=== PATIENT | female | born 1930 | race Caucasian/White ===

== ENCOUNTER 2017-08-11 20:04 | Emergency (ER) | payer MEDICARE ==
[2017-08-11 20:21] VITALS: RESP 18; TEMP 98.6
--- NOTE | 2017-08-11 20:37 | ED ---
Lower Extremity Injury HPI - General Chief Complaint: Extremity Injury, Lower Stated Complaint: FALL,KNEE PAIN Time Seen by Provider: 08/11/17 20:14 Source: EMS, RN notes reviewed Mode of arrival: EMS Limitations: physical limitation - History of Present Illness Initial Comments: This is an 87-year-old female who presents to the emergency department with chief complaint of left knee injury. Patient states that on Saturday evening she was walking in her bedroom when she fell and landed on her left knee. Patient states she cannot remember what caused her to fall and states that she landed directly onto the left knee, falling on a platform that she uses to get in and out of bed. Patient states that she has had frequent falls in the past, stating her last fall was about 1 year ago. Patient denies any head injury, loss of consciousness or dizziness. Son is at bedside and states that she was able to ambulate Saturday evening after the fall and got up without difficulty on Saturday morning when her home health nurse visited. He states after the nurse left, patient was having difficulty walking due to pain in the left knee. Patient states that her pain is localized to the anterior aspect of her left knee. Denies any other injury. Denies fever, chills, chest pain, shortness of breath, abdominal pain, nausea or vomiting, constipation or diarrhea, dysuria or hematuria, numbness or tingling, headache or vision changes. - Related Data Home Medications Medication Instructions Recorded Confirmed Ketotifen Fumarate [Zaditor] 1 drops BOTH EYES TID 10/24/14 08/11/17 Levothyroxine Sodium [Synthroid] 88 mcg PO DAILY 10/24/14 08/11/17 Potassium Chloride [K-Tab ER] 20 meq PO DIRECTED 10/24/14 08/11/17 Timolol 0.5% Ophth Soln [Timoptic 1 drop BOTH EYES TID 10/24/14 08/11/17 0.5% Ophth Soln] Torsemide [Demadex] 20 mg PO Q48H 10/24/14 08/11/17 Atenolol [Tenormin] 50 mg PO DAILY 08/05/17 08/11/17 Aureliano/D3/Mag11/Zinc/Healthcare Analyst/[place]/Bor 2 tab PO DAILY 08/05/17 08/11/17 [Caltrate 600+D Plus Tablet] Fluticasone Nasal [place] [Flonase 1 spr EA NOSTRIL DAILY PRN 08/05/17 08/11/17 Nasal [place]] Multivitamin/Iron/Folic Acid 1 tab PO DAILY 08/05/17 08/11/17 [Centrum Complete Multivit Tab] Aspirin 325 mg PO DAILY 08/11/17 08/11/17 Previous Rx's Medication Instructions Recorded Amoxicillin/Potassium Clav 1 tab PO Q12HR #20 tab 08/08/17 [Augmentin 500-125 Tablet] Allergies Allergy/AdvReac Type Severity Reaction Status Date / Time No Known Allergies Allergy Verified 08/11/17 20:23 Review of Systems ROS Statement: Those systems with pertinent positive or pertinent negative responses have been documented in the HPI. ROS Other: All systems not noted in ROS Statement are negative. 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, cataract surgery, blepharoplasty, appendectomy, hernia repair, hysterectomy, sinus surgery Past Anesthesia/Blood Transfusion Reactions: No Reported Reaction Past Psychological History: No Psychological Hx Reported Smoking Status: Never smoker Past Alcohol Use History: None Reported Past Drug Use History: None Reported - Past Family History Father Family Medical History: Myocardial Infarction ([place]) Mother Family Medical History: Pneumonia Additional Family Medical History / Comment(s): tb General Exam - General Exam Comments Initial Comments: General: Awake and alert, well-developed; in no apparent distress. Pleasant and cooperative. Son is at bedside. HEENT: Head atraumatic, normocephalic. Gauze dressing placed under nares with tape extending to both sides of the face. Pupils are equal, round and reactive to light. Extraocular movements intact. Oropharynx moist without erythema or exudate. Neck: Supple. Normal ROM. Cardiovascular: Regular rate and rhythm. No murmurs, rubs or gallops. Chest symmetrical. Respiratory: Lungs clear to auscultation bilaterally. No wheezes, rales or rhonchi. Normal respiratory effort with no use of accessory muscles. Musculoskeletal: Active range of motion of the left knee is limited due to pain. There is swelling and tenderness over anterior left knee. Sensation is intact. Bilateral lower extremity and pedal pitting edema (patient states this is chronic). Pedal pulses are 2+ equal and palpable bilaterally. Skin: [place], warm and dry without rashes. Neurological: Alert and oriented x3. CN II-XII grossly intact. Speech is fluent and answers are appropriate. No focal neuro deficits. Psychiatric: Normal mood and affect. No overt signs of depression or anxiety noted. Limitations: physical limitation Course Vital Signs 08/11/17 20:15 Temperature 98.6 F Pulse Rate 87 Respiratory 18 Rate Blood Pressure 160/72 O2 Sat by Pulse 97 Oximetry Medical Decision Making - Medical Decision Making This is an 87-year-old female who presents to the emergency department with chief complaint of left knee injury. There is tenderness and swelling of the anterior knee. X-ray revealed no evidence of an acute fracture. Patient does have moderate to severe osteoarthrosis of the knee joint. This case was discussed with attending physician, Dr. Fonseca. Findings and plan were discussed with patient and her son at bedside. She will be discharged home. Recommended patient to always use her walker with ambulation. Recommended gentle motion, ice and elevation of the left knee. Patient is in agreement with plan and voiced understanding. All questions were answered. - Radiology Data Radiology results: report reviewed Left knee x-ray impression: 1. Exam limitations due to osteopenia and artifact from patient's large body habitus. No definite acute fracture seen. If persistent clinical concern for an occult osseous injury, consider short interval follow-up. 2. Moderate to severe tricompartmental osteoarthrosis. Small knee joint effusion is nonspecific and probably reactive. Disposition Clinical Impression: Contusion of knee Disposition: HOME SELF-CARE Condition: Good Instructions: Knee Pain (ED) Additional Instructions: Please perform gentle motion of the left knee, ice and elevate. Please always use your walker. Please follow up with primary care provider within 1-2 days. Return to emergency department if symptoms should worsen or any concerns arise. Referrals: Gael Gibbs MD [Primary Care Provider] - 1-2 days Time of Disposition: 21:23
--- NOTE | 2017-08-11 21:00 | XR ---
EXAMINATION TYPE: XR knee complete LT DATE OF EXAM: 08/11/2017 COMPARISON: NONE HISTORY: 87-year-old female with pain after fall TECHNIQUE: 3 views FINDINGS: Exam is limited due to the degree of osteopenia and large body habitus. Lucencies project over the tibial plateaus related to the patient's skin folds. There is moderate to severe tricompartmental degenerative change with narrowing of cartilage and join t space and marginal spurring. Meniscal chondrocalcinosis is present. There is a small knee joint eff usion. Extensor mechanism is intact. IMPRESSION: 1. Exam limitations due to osteopenia and artifact from patient's large body habitus. No definite acu te fracture seen. If persistent clinical concern for an occult osseous injury, consider short interva l follow-up. 2. Moderate to severe tricompartmental osteoarthrosis. Small knee joint effusion is nonspecific and p robably reactive.
[2017-08-11 21:30] VITALS: BP 157/72; PULSE 84
== END 2017-08-11 21:30 | disposition home or self-care (01) ==
LOC: EC 20:04
DX: S80.02XA Contusion of left knee, initial encounter (principal); M17.12 Unilateral primary osteoarthritis, left knee; M85.862 Other specified disorders of bone density and structure, left lower leg; R29.6 Repeated falls; I10 Essential (primary) hypertension; E03.9 Hypothyroidism, unspecified; H40.9 Unspecified glaucoma; Z79.82 Long term (current) use of aspirin; Z79.899 Other long term (current) drug therapy; W01.0XXA Fall on same level from slipping, tripping and stumbling without subsequent striking against object, initial encounter; Y93.01 Activity, walking, marching and hiking; Y92.003 Bedroom of unspecified non-institutional (private) residence as the place of occurrence of the external cause
CPT/HCPCS: 99283